=== PATIENT | male | born 2000 | race Asian ===

== ENCOUNTER 2023-07-09 15:07 | Outpatient (CLI) | payer OTHER, SELFPAY | END 2023-07-09 15:08 | disposition home or self-care (01) | LOC: LKVREF 15:09 | PROVIDERS: Visit Provider Otolaryngology | DX: R13.12 Dysphagia, oropharyngeal phase (principal) | CPT/HCPCS: 84443 ==

== ENCOUNTER 2023-07-16 10:58 | Outpatient (CLI) | payer OTHER, SELFPAY ==
--- NOTE | 2023-07-16 11:15 | FL_ITS ---
Patient: ANISHA PEÑALOZA Facility:?[facility] Patient ID:?[id number] Site Patient ID:?[id number]. Site :?2002 Study:?XRay-ST Neck MODIFIED SWALLOW STUDY DR. SANTILLAN TO VENKATESH-07/16/2023 11:49:26 AM Ordering Physician:?MACARIO Final Report: INDICATION: Dysphagia, unspecified, TECHNIQUE: Modified barium swallow. Fluoroscopic time 1 minute 30 seconds. FINDINGS/IMPRESSION: Anatomical structures are normal. Delayed initiation of the swallowing mechanism. No episodes of penetration or aspiration. No obstruction. No diverticulum. Normal retroversion of the epiglottis. Dictated by Jone Santillan MD @ 07/16/2023 11:54:55 AM Signed by:?Jone Santillan MD @07/16/2023 11:54:55 AM (Electronic Signature)
--- NOTE | 2023-07-16 14:44 | SLP.EVAL ---
Dr. Velasquez Please review, sign and return. Thank you Katerine Schuster, [employer] D[employer]KER D[employer] CA[employer] DIE MAKER Eval D[employer] DIE [employer]KER Eval Start: 07/16/23 13:52 Freq: Status: Active Protocol: Document 07/16/23 13:53 [facility] (Rec: 07/16/23 14:44 [facility] [id number]) E-signed By Katerine Schuster, AIYANA, DIE CA[employer] DIE MAKER D[employer] CA[employer] DIE [employer]KER System Review History & Reason For Referral Type of Speech Evaluation Modified Barium Swallow Evaluation Rehabilitation Order Evaluation Date of Order 07/10/23 Reason for Referral difficulty swallowing Treatment Diagnosis Dysphagia Hearing Information Hearing Status Within normal Vision Information Vision Status within normal Patient Orientation Orientation & Mental Status within normal [employer] Initial Assessment/POC Subjective Information Subjective/Pain Comment Patient independently ambulated to the xray suite. Assessment & Impression Assessment/Impression Patient is a 23 year old male referred for a modified barium swallow study due to difficulty swallowing. He reports it started with a chronic cough about 2 1/2 years ago. He had some relief from this about a year ago with Trelegy but this has stopped working for him. Some of the symptoms he reports are : difficulty getting a swallow started, tickly throat irritation that he has difficulty clearing, he sometimes has irritation in his lower esophagus, chest and throat tightness at times, excess saliva, throat irritation with talking, regurgitation of pretty much everything (liquid or food), difficulty burping. He has lost about 20 pounds in the past 6 weeks. He reports he has stopped eating hard foods such as pizza, breads and meat . He finds soft foods such as oatmeal the easiest to eat and swallow. He mostly eats in his room as it is uncomfortable to eat with others while he is having these swallowing issues. He reports he has had an esophagram, laryngeal scope, upper endoscopy, chest and sinus CT, methacholine challenge and none of these test revealed anything conclusive. THIN LIQUID Patient took sips of thin liquid by cup. He had a slight delay in initiating a swallow but was able to maintain the bolus in his mouth until he did swallow. He needed to swallow twice to clear the first trial but was able to clear the bolus in one swallow on the second trial. No penetration, aspiration or pharyngeal residue. PUREE Patient given a teaspoon of puree. He was able to manipulate and swallow without penetration, aspiration or pharyngeal residue. MUFFIN AND COOKIE WITH BARIUM PUREE Patient given separate trials of muffin and cookie each mixed with barium puree. He was able to chew and swallow without penetration, aspiration or pharyngeal residue. He reports a feeling of irritation in he sternal area that did eventually clear . IMPRESSIONS AND RECOMMENDATIONS Patient exhibited a delay in initiating a swallow but was able to maintain the bolus in his mouth until he did swallow . The first liquid bolus he cleared in two swallows and the second in one. He was able to chew and swallow the puree , muffin and cookie but he reported a feeling of irritation mostly in the sternal area. There was no penetration, aspiration or pharyngeal residue with any consistency food or liquid. No evidence of a protrusion or mass. Unfortunately this evaluation did not indicate why he is having these problems and he will likely need further testing. Recommended he stick with soft foods and take small bites. Recommend he try both cold and warm liquids to see if one is easier for him to initiate a swallow with. Recommend he try to stay relaxed when eating as tension in his neck could contribute to swallowing difficulty. Therapist Signature & License # I Certify That Therapy Services Provided Therapist Signature & License Number Katerine Schuster, [facility]DIE [employer]ST DIE [employer]KER, # [id number] Physician Signature Signature of Physician Indicates Medically Needed Services Physician Signature & Date Required Please Sign/Date Here Speech/Language Pathology Billing Units Billing Units Eval Swallow Motion Fluoro 1
== END 2023-07-16 10:59 | disposition home or self-care (01) ==
PROVIDERS: Visit Provider Otolaryngology
DX: R13.10 Dysphagia, unspecified (principal)
CPT/HCPCS: 74230; 92611

== ENCOUNTER 2023-07-17 15:39 | Outpatient (CLI) | payer OTHER, SELFPAY ==
--- NOTE | 2023-07-17 16:00 | CT_ITS ---
Patient: ANISHA PEÑALOZA Facility:?[facility] Patient ID:?[id number] Site Patient ID:?[id number]. Site :?2002 Study:?CT-ST Neck W/ 69CC ISOVUE 370-07/17/2023 4:28:20 PM Ordering Physician:FERNANDO Final Report: INDICATION: Dysphagia. TECHNIQUE: CT images were acquired through the neck soft tissues during infusion of 69 cc Isovue-370. FINDINGS: No soft tissue mass pathologic lymphadenopathy cyst or abnormal fluid collection or soft tissue is seen. Scattered normal/sub cm lymph nodes in the upper jugular and spinal accessory lymph node chains. Paranasal sinuses are clear as visualized. Nasal fossa nasopharynx oropharynx are unremarkable. Parapharyngeal fat spaces are not distorted or displaced. Tongue base epiglottis hypopharynx larynx and subglottic trachea are unremarkable. Major salivary glands and thyroid gland are unremarkable. Bony structures of the cervical spine are unremarkable. IMPRESSION: 1. Negative CT scan of the soft tissue neck with contrast. 2. No soft tissue mass pathologic lymphadenopathy or abnormal fluid collection seen. Please note that all CT scans at this facility use dose modulation, iterative reconstruction, and/or weight-based dosing when appropriate to reduce radiation dose to as low as reasonably achievable. Dictated by Soham Penaloza MD @ 07/18/2023 9:19:41 AM Signed by:?Soham Penaloza MD @07/18/2023 9:19:41 AM (Electronic Signature)
--- NOTE | 2023-07-17 16:00 | CT_ITS ---
Patient: ANISHA PEÑALOZA Facility:?[facility] Patient ID:?[id number] Site Patient ID:?[id number]. Site :?2002 Study:?CT-Chest W/ 69CC ISOVUE 370-07/17/2023 4:29:46 PM Ordering Physician:FERNANDO Final Report: Indication: Dysphagia Technique: Postcontrast CT chest. 69 cc Isovue 370 intravenous contrast. Images acquired in conjunction with soft tissue neck CT. Please note that all CT scans at this facility use dose modulation, iterative reconstruction, and/or weight-based dosing when appropriate to reduce radiation dose to as low as reasonably achievable. Comparison: None Findings: The visualized thyroid is within normal limits. No thyroid lesion. Incidental pericardial recess noted. No enlarged mediastinal, hilar or axillary lymph nodes. The trachea is within normal limits. Normal bronchial airways. Lungs are clear. No infiltrate or edema. No effusion or pneumothorax. No pulmonary nodule. No infiltrate or edema. No effusion or pneumothorax. Osseous structures are within normal limits. Unremarkable upper abdomen. Residual oral contrast in the colon from recent swallow study. Impression: Normal CT chest. Please note that all CT scans at this facility use dose modulation, iterative reconstruction, and/or weight-based dosing when appropriate to reduce radiation dose to as low as reasonably achievable. Dictated by Jone Núñez MD @ 07/18/2023 10:31:11 AM Signed by:?Jone Núñez MD @07/18/2023 10:31:11 AM (Electronic Signature)
== END 2023-07-17 15:40 | disposition home or self-care (01) ==
LOC: CT 15:40
PROVIDERS: PCP Otolaryngology; Visit Provider Otolaryngology
DX: R13.10 Dysphagia, unspecified (principal)
CPT/HCPCS: 70491; 71260; Q9967